=== PATIENT | male | born 1960 | race Caucasian/White ===

== ENCOUNTER 2021-07-28 18:11 | Emergency (ER) | payer OTHER ==
[~2021-07-28] VITALS: Ht 188 cm; Wt 94.3 kg
[2021-07-28] MEDS ORDERED: COZAAR100 MG PO (19:05)
[2021-07-28] MEDS ORDERED: OMEPRAZOLE20 M1 PO (19:05)
[2021-07-28] MEDS ORDERED: UREA85 G1 TOP (19:06)
[2021-07-28] MEDS ORDERED: CHLORTHALIDONE25 MG PO (19:06)
--- NOTE | 2021-07-29 13:37 | EKG ---
[facility] [address] [place], [place] [address] Signed Normal sinus rhythm Normal ECG No previous ECGs available Confirmed by CHELY MOSES MD ([id number]) on 07/29/2021 1:37:13 PM Electronically Signed By: CHELY MOSES MD 07/29/21 1337 PATIENT NAME: MARA HARDY Electrocardiogram DATE OF : 62 PHYSICIAN: CHELY MOSES MD REPORT #: [id number] REPORT IS CONFIDENTIAL AND NOT TO BE RELEASED WITHOUT AUTHORIZATION
== END 2021-07-28 21:35 | disposition home or self-care (01) ==
LOC: ED 18:11
DX: E86.0 Dehydration (principal); N17.9 Acute kidney failure, unspecified; I10 Essential (primary) hypertension; Z88.5 Allergy status to narcotic agent; Z79.899 Other long term (current) drug therapy
CPT/HCPCS: 71045; 80053; 81001; 82553; 83735; 83874; 84484; 85025; 93005; 93010; 99284-25

== ENCOUNTER 2024-10-30 08:29 | Emergency (ER) | payer OTHER ==
[~2024-10-30] VITALS: Ht 188 cm; Wt 94.8 kg
[~2024-10-30 08:29] MED LIST: CHLORTHALIDONE25 MG PO; COZAAR100 MG PO; OMEPRAZOLE20 M1 PO; UREA85 G1 TOP
[2024-10-30 08:55] LABS: RBC 4.81 M/ul (4.3-5.7)
[2024-10-30] MEDS ORDERED: LIPITOR20 MG PO (08:57)
[2024-10-30] MEDS ORDERED: NORVASC2.5 MG PO (08:57)
[2024-10-30] MEDS ORDERED: COZAAR50 MG PO (08:58)
[2024-10-30] MEDS ORDERED: FAMOTIDINE20 MG PO (08:58)
[2024-10-30 09:01] LABS: BASOPHILS 0.5 % (0-2); EOSINOPHILS 0.5 % (0-6); HEMATOCRIT 41.7 % (35.0-50.0); HEMOGLOBIN 14.3 g/dL (12.0-18.0); LYMPHOCYTES 14.8 % (24-44); MCH 29.7 (27-36); MCHC 34.3 g/dl (30-36); MCV 86.7 fl (81-99); MONOCYTES 6.1 % (0-12); NEUTROPHILS 78.1 % (39-80); PLATELET COUNT 189 K/uL (140-440); RDW 14.3 (10.5-15.0)
[2024-10-30 09:17] LABS: ALBUMIN 4.1 g/dL (3.4-5.0); ALBUMIN/GLOBULIN RATIO 1.24 (1.1-2.4); ANION GAP 16.1 (7-21); BILIRUBIN, TOTAL 0.4 mg/dL (0.2-1.0); CALCIUM 9.6 mg/dL (8.5-10.1); CREATININE, SERUM 1.35 mg/dL (0.70-1.30); MAGNESIUM 1.8 mg/dL (1.8-2.4); POTASSIUM 4.1 mmol/L (3.5-5.1); PROTEIN, TOTAL 7.4 g/dL (6.4-8.2)
[2024-10-30 10:38] LABS: BILIRUBIN, URINE NEGATIVE (negative); BLOOD/HGB, URINE NEGATIVE (Negative); KETONE, URINE NEGATIVE (Negative); LEUK ESTERASE, URINE NEGATIVE (negative); NITRITE, URINE NEGATIVE (negative); PH, URINE 6.5 (5-7)
[2024-10-30 10:55] VITALS: BP 154/87
--- NOTE | 2024-10-30 22:19 | EKG ---
[facility] [address] [place] [address] Signed Sinus rhythm with 1st degree AV block Cannot rule out Inferior infarct , age undetermined Abnormal ECG When compared with ECG of 28-JUL-2021 18:55, No significant change was found Confirmed by Preston Li MD () on 10/30/2024 10:18:56 PM Electronically Signed By: PRESTON LI MD 10/30/24 2219 PATIENT NAME: MARA HARDY Electrocardiogram DATE OF : 62 PHYSICIAN: PRESTON LI MD REPORT #: [id number] REPORT IS CONFIDENTIAL AND NOT TO BE RELEASED WITHOUT AUTHORIZATION
== END 2024-10-30 10:55 | disposition other institution, planned readmission (95) ==
LOC: ED 08:29
PROVIDERS: Emergency Medicine
DX: R07.89 Other chest pain (principal); I10 Essential (primary) hypertension; R73.03 Prediabetes; Z87.891 Personal history of nicotine dependence; Z88.5 Allergy status to narcotic agent; Z79.899 Other long term (current) drug therapy
CPT/HCPCS: 36415; 71046; 80053; 81003; 83735; 83880; 84484; 85025; 85060; 93005; 93010; 99285-25